=== PATIENT | male | born 1960 | race Caucasian/White ===

== ENCOUNTER 2023-01-05 16:01 | Outpatient (CLI) | payer MEDICAID, SELFPAY ==
--- NOTE | 2023-01-05 15:15 | DI.RAD_ITS ---
Exam(s) XR ANKLE RT COMPLETE EXAM: XR ANKLE RT COMPLETE CLINICAL HISTORY: RT ANKLE PAIN, M25.571, RULE OUT OSTEOMYELITIS TO FIBULA. TECHNIQUE: 2D digital imaging was performed of the right ankle. Three images were obtained. AP, la teral and oblique views were obtained. COMPARISON: No exams were available for comparison FINDINGS: BONES: No acute fracture is present. No bony destructive lesion is seen. JOINTS: The ankle mortise is normally aligned. SOFT TISSUE: Normal. IMPRESSION: Unremarkable radiographs of the right ankle. No radiographic evidence to suggest osteomyelitis. DATA REPOSITORY: RADIATION DOSE DELIVERED:
== END 2023-01-05 16:21 ==
LOC: DI 16:03
PROVIDERS: PCP Family Medicine; Visit Provider Podiatrist
DX: M25.571 Pain in right ankle and joints of right foot (principal)
CPT/HCPCS: 73610

== ENCOUNTER 2023-12-13 14:43 | Outpatient (REF) | payer MEDICAID, SELFPAY | END 2023-12-13 14:44 | disposition home or self-care (01) | LOC: LBN 14:43 | PROVIDERS: PCP Family Medicine; Visit Provider Podiatrist | DX: L03.90 Cellulitis, unspecified (principal) | CPT/HCPCS: 87070; 87075; 87205 ==

== ENCOUNTER 2024-01-17 15:01 | Outpatient (REF) | payer MEDICAID, SELFPAY | END 2024-01-17 15:02 | disposition home or self-care (01) | LOC: LBN 15:01 | PROVIDERS: PCP Family Medicine; Visit Provider Podiatrist | DX: L97.919 Non-pressure chronic ulcer of unspecified part of right lower leg with unspecified severity (principal) | CPT/HCPCS: 87070; 87075; 87205 ==

== ENCOUNTER → 2024-01-19 00:52 | Outpatient (CLI) | payer MEDICAID, SELFPAY ==
--- NOTE | 2024-01-19 07:15 | DI.RAD_ITS ---
Exam(s) XR ANKLE RT COMPLETE EXAM: XR ANKLE RT COMPLETE CLINICAL HISTORY: lateral mall, i70.233 atherosclerosis [place] arteries rt leg/ulceration. TECHNIQUE: 2D digital imaging was performed. Three views. COMPARISON: CR XR ANKLE RT COMPLETE from 01/05/2023 FINDINGS: Exam extremely limited by overlying sock. This creates artifact. BONES: No acute fracture is present. No bony destructive lesion is seen. JOINTS: The ankle mortise is normally aligned. Joint spaces are maintained. SOFT TISSUE: Normal no gross evidence of swelling. IMPRESSION: Limited exam. No acute abnormality. DATA REPOSITORY: RADIATION DOSE DELIVERED:
--- NOTE | 2024-01-19 07:15 | DI.RAD_ITS ---
Exam(s) XR FOOT LT COMPLETE EXAM: XR FOOT LT COMPLETE CLINICAL HISTORY: 5th met base, chronic ulcer lt foot, L97.529 nonpressure ulcer. TECHNIQUE: 2D digital imaging was performed. Three views. COMPARISON: No exams were available for comparison FINDINGS: Exam significantly limited by overlying material. Somewhat obscures the bony detail. BONES: No gross evidence acute fracture is present. No gross evidence of bony destructive lesion is s een. JOINTS: No dislocation present. Arch is maintained. SOFT TISSUE: Mainly obscured. IMPRESSION: Limited exam. No gross evidence of acute abnormality. DATA REPOSITORY: RADIATION DOSE DELIVERED:
== END ==
PROVIDERS: PCP Family Medicine; Visit Provider Podiatrist
DX: I70.233 Atherosclerosis of native arteries of right leg with ulceration of ankle (principal); M25.572 Pain in left ankle and joints of left foot
CPT/HCPCS: 73610; 73630